=== PATIENT | female | born 1945 | race Caucasian/White ===

== ENCOUNTER 2017-01-27 07:41 | Emergency (ER) | payer MEDICARE ==
--- NOTE | 2017-01-27 07:50 | EDM.PDOC ---
ED HPI GENERAL MEDICAL PROBLEM - General Chief Complaint: Gastrointestinal Problem Stated Complaint: BLEEDING Time Seen by Provider: 01/27/17 07:49 Source of Information: Reports: Patient - History of Present Illness INITIAL COMMENTS - FREE TEXT/NARRATIVE: HISTORY AND PHYSICAL: History of present illness: Patient presents with history of GI bleeding while on vacation in [place], she had EGD as well as colonoscopy performed in september after that episode had resolved, she was found to have internal hemorrhoids as well as diverticulosis. She returns today again with painless rectal bleeding this morning at 7 AM she states she had three episodes of rectal bleeding no f/n/v/c/s/cp/sob /virgen/d/palp Review of systems: As per history of present illness and below otherwise all systems reviewed and negative. Past medical history: As per history of present illness and as reviewed below otherwise noncontributory. Surgical history: As per history of present illness and as reviewed below otherwise noncontributory. Social history: No reported history of drug or alcohol abuse. Family history: As per history of present illness and as reviewed below otherwise noncontributory. Physical exam: HEENT: Atraumatic, normocephalic, pupils reactive, negative for conjunctival pallor or scleral icterus, mucous membranes moist, throat clear, neck supple, nontender, trachea midline. Lungs: Clear to auscultation, breath sounds equal bilaterally, chest nontender. Heart: S1S2, regular, negative for clicks, rubs, or JVD. Abdomen: Soft, nondistended, nontender. Negative for masses or hepatosplenomegaly. Negative for costovertebral tenderness. Pelvis: Stable nontender. Genitourinary: Deferred. Rectal: No mass scar or lesion on the external exam internal exam no mass scarred lesion guaiac was +4, no active bleeding Extremities: Atraumatic, negative for cords or calf pain. Neurovascular unremarkable. Neuro: Awake, alert, oriented. Cranial nerves II through XII unremarkable. Cerebellum unremarkable. Motor and sensory unremarkable throughout. Exam nonfocal. Diagnostics: []Lab as below Therapeutics: []Patient symptomatically improved and desires to go home she is offered observation admission to follow lab and symptoms . it stressed that she should Return if symptoms persist or worsen she is described this plan and agrees consents voices understanding Impression: []BRBPR Diverticulosis Definitive disposition and diagnosis as appropriate pending reevaluation and review of above. - Related Data Allergies Allergy/AdvReac Type Severity Reaction Status Date / Time adhesive Allergy Blisters Verified 01/27/17 07:50 adhesive tape Allergy Blisters Verified 01/27/17 07:50 ciprofloxacin [From Cipro] Allergy Rash Verified 01/27/17 07:50 codeine Allergy Insomnia Verified 01/27/17 07:50 procaine [From Novocain] Allergy Syncope Verified 01/27/17 07:50 Home Meds: Home Meds ClonazePAM [KlonoPIN] 0.5 mg PO BEDTIME 01/27/17 [History] Naproxen Sodium [Aleve] 220 mg PO DAILY 01/27/17 [History] amLODIPine [Norvasc] 0.25 mg PO BEDTIME PRN 01/27/17 [History] ED ROS GENERAL - Review of Systems Review Of Systems: ROS reveals no pertinent complaints other than HPI. ED EXAM, GENERAL - Physical Exam Exam: See Below Course - Vital Signs Last Recorded V/S: Last Vital Signs Temp 35.8 C 01/27/17 08:26 Pulse 112 H 01/27/17 08:26 Resp 18 01/27/17 08:26 BP 131/60 01/27/17 08:26 Pulse Ox 96 01/27/17 08:26 Orthostatic Blood Pressure [ 120/57 Standing] Orthostatic Blood Pressure [ 140/64 Sitting] Orthostatic Blood Pressure [ 138/63 Supine] - Orders/Labs/Meds Orders: Active Orders 24 hr Category Date Time Status Fecal Occult Blood Collection [RC] ASDIRECTED Care 01/27/17 08:22 Active Orthostatic Vital Signs [RC] ASDIRECTED Care 01/27/17 08:29 Active TYPE AND SCREEN [BBK] Stat Lab 01/27/17 08:00 Received Labs: Laboratory Tests 01/27/17 01/27/17 01/27/17 Range/Units 08:00 08:00 08:00 WBC 6.34 (4.0-11.0) K/uL RBC 4.26 L (4.30-5.90) M/uL Hgb 11.4 L (12.0-16.0) g/dL Hct 35.1 L (36.0-46.0) % MCV 82.4 (80.0-98.0) fL MCH 26.8 L (27.0-32.0) pg MCHC 32.5 (31.0-37.0) g/dL RDW Std Deviation 42.5 (28.0-62.0) fl RDW Coeff of Kourtney 14 (11.0-15.0) % Plt Count 244 (150-400) K/uL MPV 9.40 (7.40-12.00) fL Neut % (Auto) 47.8 L (48.0-80.0) % Lymph % (Auto) 42.1 H (16.0-40.0) % Barry % (Auto) 7.4 (0.0-15.0) % Eos % (Auto) 2.4 (0.0-7.0) % Baso % (Auto) 0.3 (0.0-1.5) % Neut # (Auto) 3.0 (1.4-5.7) K/uL Lymph # (Auto) 2.7 H (0.6-2.4) K/uL Barry # (Auto) 0.5 (0.0-0.8) K/uL Eos # (Auto) 0.2 (0.0-0.7) K/uL Baso # (Auto) 0.0 (0.0-0.1) K/uL Nucleated RBC % 0.0 /100WBC Nucleated RBCs # 0 K/uL INR 1.02 (0.86-1.11) Sodium 135 L (136-146) mmol/L Potassium 4.0 (3.5-5.1) mmol/L Chloride 102 (98-110) mmol/L Carbon Dioxide 22 (21-31) mmol/L BUN 19 (6.0-23.0) mg/dL Creatinine 0.8 (0.6-1.5) mg/dL Est Cr Clr Drug Dosing 52.58 mL/min Estimated GFR (MDRD) > 60.0 ml/min Glucose 128 H (60-110) mg/dL Calcium 8.6 L (8.8-10.8) mg/dL Total Bilirubin 0.3 (0.1-1.5) mg/dL AST 22 (5-40) IU/L ALT 21 (8-54) IU/L Alkaline Phosphatase 59 (40-150) Total Protein 6.6 (6.0-8.0) g/dL Albumin 3.9 (3.4-4.8) g/dL Globulin 2.7 (2.0-3.5) g/dL Albumin/Globulin Ratio 1.4 (1.3-2.8) Departure - Departure Time of Disposition: 08:51 Disposition: Home, Self-Care 01 Condition: Fair Clinical Impression: Diverticulosis - Discharge Information Forms: ED Department Discharge Additional Instructions: Return if symptoms persist or worsen Follow-up with primary care in one week for recheck Again return if fever nausea vomiting chills sweats lightheaded dizzy or shortness of breath should this develop [facility] [address] [place] [id number] The following information is given to patients seen in the emergency department who are being discharged to home. This information is to outline your options for follow-up care. We provide all patients seen in our emergency department with a follow-up referral. The need for follow-up, as well as the timing and circumstances, are variable depending upon the specifics of your emergency department visit. If you don't have a primary care physician on staff, we will provide you with a referral. We always advise you to contact your personal physician following an emergency department visit to inform them of the circumstance of the visit and for follow-up with them and/or the need for any referrals to a consulting specialist. The emergency department will also refer you to a specialist when appropriate. This referral assures that you have the opportunity for follow-up care with a specialist. All of these measure are taken in an effort to provide you with optimal care, which includes your follow-up. Under all circumstances we always encourage you to contact your private physician who remains a resource for coordinating your care. When calling for follow-up care, please make the office aware that this follow-up is from your recent emergency room visit. If for any reason you are refused follow-up, please contact the [facility] emergency department at and asked to speak to the emergency department charge nurse. - My Orders Last 24 Hours: My Active Orders 01/27/17 08:00 TYPE AND SCREEN [BBK] Stat 01/27/17 08:22 Fecal Occult Blood Collection [RC] ASDIRECTED 01/27/17 08:29 Orthostatic Vital Signs [RC] ASDIRECTED - Assessment/Plan Last 24 Hours: My Active Orders 01/27/17 08:00 TYPE AND SCREEN [BBK] Stat 01/27/17 08:22 Fecal Occult Blood Collection [RC] ASDIRECTED 01/27/17 08:29 Orthostatic Vital Signs [RC] ASDIRECTED
[2017-01-27 08:31] LABS: CHLORIDE,CL 102 mmol/L (98-110); SODIUM,NA 135 mmol/L (136-146)
[2017-01-27 09:04] VITALS: BP 121/58
== END 2017-01-27 09:03 | disposition home or self-care (01) ==
LOC: MW.ED 07:41
DX: K57.91 Diverticulosis of intestine, part unspecified, without perforation or abscess with bleeding (principal); Z88.1 Allergy status to other antibiotic agents; Z88.5 Allergy status to narcotic agent; Z88.8 Allergy status to other drugs, medicaments and biological substances; Z79.899 Other long term (current) drug therapy
CPT/HCPCS: 36415; 80053; 85025; 85610; 86850; 86900; 86901; 99282; 99284